=== PATIENT | female | born 1980 | race African-American/Black ===

== ENCOUNTER 2017-08-11 18:58 | Emergency (ER) | payer OTHER | END 2017-08-11 20:00 | disposition left against medical advice (07) | LOC: ERS 18:58 | DX: Z53.21 Procedure and treatment not carried out due to patient leaving prior to being seen by health care provider (principal) ==

== ENCOUNTER 2018-12-28 20:00 | Emergency (ER) | payer OTHER ==
[~2018-12-28 20:00] MED LIST: ISOVUE-370 76%-LOCM 1 ML ONE
[2018-12-28 20:51] LABS: #Basophils 0.1 thou/uL (0.0-0.2); #Eosinphils 0.4 thou/uL (0.0-0.7); #Lymphocytes 3.4 thou/uL (1.20-3.40); #Monocytes 0.8 thou/uL (0.11-0.59); #Neutrophils 5.2 thou/uL (1.40-6.50); %Basophils 0.6 % (0.0-1.0); %Eosinophils 3.8 % (0.0-10.0); %Lymphocytes 34.1 % (21.0-51.0); %Monocytes 8.5 % (0.0-10.0); %Neutrophils 53.1 % (42.0-75.0); Mean Corpuscular HGB CONC 37.4 g/dL (32.0-36.0); Mean Corpuscular Hemoglobin 31.2 pg (27.0-31.0); Mean Corpuscular Volume 83.4 fL (78.0-98.0); Mean Platelet Volume 7.7 fL (7.4-10.4); Platelet Count 264 thou/uL (130-400); RBC Distribution Width 15.8 % (11.5-14.5); White Blood Cell (WBC) Count 9.9 thou/uL (4.8-10.8)
[2018-12-28 20:57] LABS: Bacteria/HPF None Seen HPF (None Seen); Bilirubin Negative (Negative); Blood, Urine Negative (Negative); Clarity Clear (Clear); Glucose, Urine (Dipstick) Normal (Negative); Leukocyte 25 Leu/uL (Negative); Nitrite Negative (Negative); Pregnancy Test - Urine (BHCG) Negative (Negative); Pregu Control Background? CLEAR/WHITE (CLR/WHITE); Pregu Control Bar Appear? YES (CONTROL BAR); Protein, Urine (Dipstick) Negative (Neg-Trace); RBC/HPF 0-3 HPF (0-3); Specific Gravity 1.015 (1.002-1.036); Urobilinogen Normal mg/dL (Less than 2); WBC/HPF 0-3 HPF (0-3)
[2018-12-28 21:03] LABS: Stomatocytes SLIGHT = 2-5 cells (100X) (0-1/hpf)
[2018-12-28 21:09] LABS: ALT (SGPT) 14 U/L (8-55); AST (SGOT) 13 U/L (5-34); Albumin 3.9 g/dL (3.5-5.0); Alkaline Phosphatase 58 U/L (40-150); Anion Gap 11 mmol/L (10-20); BUN (Urea Nitrogen) 8 mg/dL (7.0-18.7); Bilirubin, Total 0.4 mg/dL (0.2-1.2); Calc. Creatinine Clearance 0 mL/min (70-130); Calcium 8.7 mg/dL (7.8-10.44); Carbon Dioxide 25 mmol/L (22-29); Chloride 106 mmol/L (98-107); Estimated GFR-MDRD Greater than 90; Globulin 2.8 g/dL (2.4-3.5); Glucose 96 mg/dL (70-105); Lipase 47 U/L (8-78); Potassium 3.6 mmol/L (3.5-5.1); Protein, Total 6.7 g/dL (6.0-8.3); Sodium 138 mmol/L (136-145)
[2018-12-28] MEDS ORDERED: Ketorolac Tromethamine 60 MG/2 ML VIAL ONE (21:42)
[2018-12-28] MEDS ORDERED: Sodium Chloride 0.9% 100 ML ONE (22:31)
[2018-12-28] MEDS ORDERED: cefTRIAXone\\ROCEPHIN 250 MG VIAL ONE (22:31)
[2018-12-28] MEDS ORDERED: Azithromycin 250 MG TAB ONE (22:31)
[2018-12-28] MEDS ORDERED: Ondansetron PF 4 MG/2 ML Vial ONE (22:31)
--- NOTE | 2018-12-28 23:39 | CT ---
CT ABDOMEN AND PELVIS WITH IV CONTRAST: History: Abdominal pain. FINDINGS: Changes of cholecystectomy. The lungs bases are clear. The liver, spleen, pancreas, adrenal glands, a nd kidneys are normal. No free air, free fluid or lymphadenopathy is seen in the abdomen or pelvis. U terus and ovaries are present. The small bowel loops are normally dilated. The small bowel loops are not abnormally dilated. A normal appendix is present. A small umbilical hernia is noted. Sclerosis of the ilium and sacrum bilaterally on either side of the SI joints are again seen as on 09-13-16. IMPRESSION: 1. No evidence of acute process. POS: [facility]
[2018-12-30 00:08] LABS: Chlamydia by PCR DETECTED (NotDetected); GC by PCR Not Detected (NotDetected)
== END 2018-12-29 00:02 | disposition home or self-care (01) ==
LOC: ERS 20:00
DX: N76.0 Acute vaginitis (principal); B96.89 Other specified bacterial agents as the cause of diseases classified elsewhere; R19.7 Diarrhea, unspecified; R11.0 Nausea
CPT/HCPCS: 36415; 74177; 80053; 81003; 81015; 81025; 83690; 85025; 87480; 87491; 87510; 87591; 87660; 96365; 96372; 96375; J0696; J1885; J2405; J3490; Q9966

== ENCOUNTER → 2019-01-07 | Day surgery (SDC) | payer OTHER ==
[~2019-01-07] MED LIST changes: +Azithromycin 250 MG TAB ONE; -ISOVUE-370 76%-LOCM 1 ML ONE
== END ==
LOC: ER/OP 21:16
DX: A64 Unspecified sexually transmitted disease (principal)
CPT/HCPCS: J3370

== ENCOUNTER 2019-02-06 23:50 | Emergency (ER) | payer OTHER ==
[2019-02-07 00:26] LABS: Bilirubin Negative (Negative); Blood, Urine Negative (Negative); Clarity Clear (Clear); Glucose, Urine (Dipstick) Normal (Negative); Leukocyte Negative Leu/uL (Negative); Nitrite Negative (Negative); Protein, Urine (Dipstick) Negative (Neg-Trace); Urobilinogen Normal mg/dL (Less than 2)
[2019-02-07 00:39] LABS: Pregnancy Test - Urine (BHCG) Negative (Negative); Pregu Control Background? CLEAR/WHITE (CLR/WHITE); Pregu Control Bar Appear? YES (CONTROL BAR); Specific Gravity 1.013 (1.002-1.036)
[2019-02-07] MEDS ORDERED: cefTRIAXone\\ROCEPHIN 250 MG VIAL ONE ×2 (01:40→01:42)
[2019-02-07] MEDS ORDERED: Lidocaine 1% w/Epinephrine 1:100K 20 ML VIAL ONE (01:40)
[2019-02-07] MEDS ORDERED: Lidocaine 1% (PF) 30 ML VIAL ONE (01:40)
[2019-02-07] MEDS ORDERED: Lidocaine 1% PF 5 ML VIAL ONE (01:42)
--- NOTE | 2019-02-07 10:53 | ULT ---
PRELIMINARY REPORT/[facility]/AFTER HOURS PROCEDURE: EXAMS: US Pelvis, Transvaginal US Duplex Arterial/Venous of the Pelvis, Complete CLINICAL HISTORY: Pain. TECHNIQUE: Real-time pelvic ultrasound (complete) with image documentation. Transvaginal imaging was used for be tter evaluation of the endometrium and adnexa. Real-time duplex ultrasound scan of the pelvis integra ting B-mode two-dimensional vascular structure, Doppler spectral analysis and color flow Doppler imag ing. COMPARISON: No relevant prior studies available. FINDINGS: Uterus/cervix: No acute findings. Normal endometrial stripe thickness at 9 mm. No myometrial mass. Right ovary: No acute findings. 4.4 x 2. 7 x 2. 7 cm. Normal blood flow on color and spectral Doppler imaging. No torsion. Left ovary: No acute findings. 5.0 x 2.7 x 4.0 cm. Normal blood flow on color and spectral Doppler imaging. No torsion. Free fluid: Small volume free cul de sac fluid. IMPRESSION: No torsion. Small volume fluid in the cul de sac, within physiologic normal limits for reproductive a ge female. Thank you for allowing us to participate in the care of your patient. Dictated and Authenticated by: Tami Guerrero MD 02/07/2019 1:48 AM Central Time ([place] & [place]) FINAL REPORT TRANSVAGINAL PELVIC ULTRASOUND WITH CASTILLO-SCALE AND COLOR-FLOW AND SPECTRAL DOPPLER IMAGING: I agree with the preliminary report given by Dr. Guerrero of [facility]. CODE QA POS: [facility]
[2019-02-11 00:51] LABS: Chlamydia by PCR Not Detected (NotDetected); GC by PCR Not Detected (NotDetected)
== END 2019-02-07 02:14 | disposition home or self-care (01) ==
LOC: ERS 23:50
DX: N89.8 Other specified noninflammatory disorders of vagina (principal); G43.909 Migraine, unspecified, not intractable, without status migrainosus
CPT/HCPCS: 76856; 81003; 81025; 87480; 87491; 87510; 87591; 87660; 96372; J0696; J2001

== ENCOUNTER 2019-06-06 14:44 | Emergency (ER) | payer OTHER ==
[2019-06-06] MEDS ORDERED: Ketorolac Tromethamine 30 MG/ML VIAL ONE (15:19)
[2019-06-06 15:55] LABS: Bilirubin Negative (Negative); Blood, Urine Negative (Negative); Clarity Clear (Clear); Glucose, Urine (Dipstick) Normal (Negative); Leukocyte Negative Leu/uL (Negative); Nitrite Negative (Negative); Protein, Urine (Dipstick) Negative (Neg-Trace); Urobilinogen Normal mg/dL (Less than 2)
[2019-06-06 15:56] LABS: #Basophils 0.1 thou/uL (0.0-0.2); #Eosinphils 0.3 thou/uL (0.0-0.7); #Lymphocytes 3.2 thou/uL (1.20-3.40); #Monocytes 0.9 thou/uL (0.11-0.59); #Neutrophils 4.6 thou/uL (1.40-6.50); %Basophils 1.3 % (0.0-1.0); %Eosinophils 3.8 % (0.0-10.0); %Lymphocytes 34.5 % (21.0-51.0); %Monocytes 9.9 % (0.0-10.0); %Neutrophils 50.6 % (42.0-75.0); Mean Corpuscular Volume 81.8 fL (78.0-98.0); Mean Platelet Volume 7.6 fL (7.4-10.4); Platelet Count 272 thou/uL (130-400); RBC Distribution Width 15.8 % (11.5-14.5); White Blood Cell (WBC) Count 9.1 thou/uL (4.8-10.8)
[2019-06-06 15:57] LABS: Pregnancy Test - Urine (BHCG) Negative (Negative); Pregu Control Background? CLEAR/WHITE (CLR/WHITE); Pregu Control Bar Appear? YES (CONTROL BAR); Specific Gravity 1.013 (1.002-1.036)
[2019-06-06 16:00] LABS: Mean Corpuscular HGB CONC 37.2 g/dL (32.0-36.0)
[2019-06-06 16:04] LABS: ALT (SGPT) 21 U/L (8-55); AST (SGOT) 23 U/L (5-34); Albumin 3.9 g/dL (3.5-5.0); Alkaline Phosphatase 67 U/L (40-110); Anion Gap 12 mmol/L (10-20); BUN (Urea Nitrogen) 7 mg/dL (7.0-18.7); Bilirubin, Total 0.4 mg/dL (0.2-1.2); Calc. Creatinine Clearance 0 mL/min (70-130); Calcium 9.2 mg/dL (7.8-10.44); Carbon Dioxide 27 mmol/L (22-29); Chloride 107 mmol/L (98-107); Estimated GFR-MDRD 88; Globulin 3.4 g/dL (2.4-3.5); Glucose 80 mg/dL (70-105); Potassium 4.4 mmol/L (3.5-5.1); Protein, Total 7.3 g/dL (6.0-8.3); Sodium 142 mmol/L (136-145)
[2019-06-07 22:08] LABS: Chlamydia by PCR Not Detected (NotDetected); GC by PCR Not Detected (NotDetected)
== END 2019-06-06 17:23 | disposition home or self-care (01) ==
LOC: ERS 14:44
DX: R10.9 Unspecified abdominal pain (principal); G43.909 Migraine, unspecified, not intractable, without status migrainosus; F41.9 Anxiety disorder, unspecified; F32.9 Major depressive disorder, single episode, unspecified; Z79.899 Other long term (current) drug therapy
CPT/HCPCS: 36415; 80053; 81003; 81025; 85025; 87491; 87591; 96372; 96374; J0500; J1885

== ENCOUNTER 2019-11-15 16:11 | Emergency (ER) | payer OTHER ==
[2019-11-15] MEDS ORDERED: Acetaminophen 500 MG TAB ONE (16:31)
[2019-11-16 15:26] LABS: SARS-CoV-2 MS2 Positive; SARS-CoV-2 N Gene Negative; SARS-CoV-2 S Gene Negative; SARS-CoV-2 orf1ab Negative
== END 2019-11-15 17:28 | disposition home or self-care (01) ==
LOC: ERS 16:11
DX: J02.9 Acute pharyngitis, unspecified (principal); Z20.828 Contact with and (suspected) exposure to other viral communicable diseases; R51 Headache; R50.9 Fever, unspecified; G89.29 Other chronic pain; F41.9 Anxiety disorder, unspecified; F31.9 Bipolar disorder, unspecified
CPT/HCPCS: 87081; 87430; 87635; 99284; U0003

== ENCOUNTER 2021-03-25 16:12 | Emergency (ER) | payer OTHER ==
[~2021-03-25 16:12] MED LIST changes: -Azithromycin 250 MG TAB ONE; +Iopamidol-370 76% 500 ML 1 ML ONE
[2021-03-25] MEDS ORDERED: Morphine 4 MG/ML VIAL ONE (16:52)
[2021-03-25] MEDS ORDERED: Ketorolac Tromethamine 30 MG/ML VIAL ONE (16:53)
[2021-03-25] MEDS ORDERED: Ondansetron PF 4 MG/2 ML Vial ONE (16:53)
[2021-03-25 16:59] LABS: BHCG - Serum Negative (NEGATIVE); Pregs Control Background? CLEAR/WHITE (CLR/WHITE); Pregs Control Bar Appear? YES (CONTROL BAR)
[2021-03-25 17:00] LABS: Bacteria/HPF None Seen HPF (None Seen); Bilirubin Negative (Negative); Blood, Urine 3+ (Negative); Clarity Clear (Clear); Glucose, Urine (Dipstick) Normal (Negative); Ketone, Urine Negative (Negative); Leukocyte 75 Leu/uL (Negative); Nitrite Negative (Negative); Protein, Urine (Dipstick) 10 mg/dL (Neg-Trace); Specific Gravity, Urine 1.015 (1.002-1.036)
[2021-03-25 17:02] LABS: #Eosinphils 0.4 thou/uL (0.0-0.7); #Lymphocytes 3.9 thou/uL (1.20-3.40); #Monocytes 0.7 thou/uL (0.11-0.59); #Neutrophils 4.6 thou/uL (1.40-6.50); %Lymphocytes 41.3 % (21.0-51.0); %Monocytes 6.8 % (0.0-10.0); %Neutrophils 47.9 % (42.0-75.0); Hemoglobin 12.8 g/dL (12.0-16.0); Mean Corpuscular HGB CONC 37.4 g/dL (32.0-36.0); Mean Corpuscular Hemoglobin 30.4 pg (27.0-31.0); Mean Corpuscular Volume 81.4 fL (78.0-98.0); Mean Platelet Volume 7.1 fL (7.4-10.4); Platelet Count 347 thou/uL (130-400); RBC Distribution Width 16.5 % (11.5-14.5); White Blood Cell (WBC) Count 9.5 thou/uL (4.8-10.8)
[2021-03-25 17:04] LABS: ALT (SGPT) 32 U/L (8-55); AST (SGOT) 33 U/L (5-34); Alkaline Phosphatase 90 U/L (40-110); Anion Gap 11 mmol/L (10-20); BUN (Urea Nitrogen) 6 mg/dL (7.0-18.7); Bilirubin, Total 0.4 mg/dL (0.2-1.2); Calc. Creatinine Clearance 0 mL/min (70-130); Calcium 9.5 mg/dL (7.8-10.44); Carbon Dioxide 27 mmol/L (22-29); Chloride 106 mmol/L (98-107); Globulin 3.6 g/dL (2.4-3.5); Glucose 98 mg/dL (70-105); Lipase 43 U/L (8-78); Potassium 4.1 mmol/L (3.5-5.1); Protein, Total 7.6 g/dL (6.0-8.3); Sodium 140 mmol/L (136-145)
== END 2021-03-25 18:45 ==
LOC: ERS 16:12
DX: R11.2 Nausea with vomiting, unspecified (principal); R19.7 Diarrhea, unspecified; R10.13 Epigastric pain; M54.50 Low back pain, unspecified; R51.9 Headache, unspecified; E28.2 Polycystic ovarian syndrome
CPT/HCPCS: 74177; 80053; 81003; 81015; 83690; 84703; 85025; 96374; 96375; J1885; J2270; J2405; Q9967

== ENCOUNTER 2021-04-28 09:51 | Emergency (ER) | payer OTHER, SELFPAY ==
[2021-04-28 10:43] LABS: BHCG - Serum Negative (NEGATIVE); Pregs Control Background? CLEAR/WHITE (CLR/WHITE); Pregs Control Bar Appear? YES (CONTROL BAR)
[2021-04-28 10:49] LABS: ALT (SGPT) 26 U/L (8-55); AST (SGOT) 21 U/L (5-34); Albumin 3.8 g/dL (3.5-5.0); Alkaline Phosphatase 71 U/L (40-110); Anion Gap 10 mmol/L (10-20); BUN (Urea Nitrogen) 6 mg/dL (7.0-18.7); Bilirubin, Total 0.5 mg/dL (0.2-1.2); Calc. Creatinine Clearance 0 mL/min (70-130); Calcium 9.5 mg/dL (7.8-10.44); Carbon Dioxide 26 mmol/L (22-29); Chloride 105 mmol/L (98-107); Globulin 3.7 g/dL (2.4-3.5); Glucose 100 mg/dL (70-105); Lipase 26 U/L (8-78); Potassium 4.1 mmol/L (3.5-5.1); Protein, Total 7.5 g/dL (6.0-8.3); Sodium 137 mmol/L (136-145)
[2021-04-28 11:32] LABS: Band 3 % (5-11); Eosinophils 2 % (0-10); Hemoglobin 12.7 g/dL (12.0-16.0); Lymphocytes 33 % (21-51); MDiff Complete? YES; Mean Corpuscular Hemoglobin 30.1 pg (27.0-31.0); Mean Corpuscular Volume 81.4 fL (78.0-98.0); Mean Platelet Volume 8.1 fL (7.4-10.4); Monocytes 3 % (0-10); Neutrophil 59 % (42-75); Platelet Count 254 thou/uL (130-400); RBC Distribution Width 16.4 % (11.5-14.5); Red Blood Cell (RBC) Count 4.21 mill/uL (4.20-5.40); White Blood Cell (WBC) Count 7.6 thou/uL (4.8-10.8)
[2021-04-28 14:48] LABS: Bilirubin Negative (Negative); Blood, Urine Negative (Negative); Clarity Clear (Clear); Glucose, Urine (Dipstick) Normal (Negative); Ketone, Urine Negative (Negative); Leukocyte Negative Leu/uL (Negative); Nitrite Negative (Negative); Protein, Urine (Dipstick) Negative (Neg-Trace); Urobilinogen Normal mg/dL (Less than 2)
[2021-04-28] MEDS ORDERED: Lidocaine 1% PF 5 ML VIAL ONE (14:57)
[2021-04-28] MEDS ORDERED: Ketorolac Tromethamine 30 MG/ML VIAL ONE (14:57)
[2021-04-28] MEDS ORDERED: cefTRIAXone\\ROCEPHIN 500 MG VIAL ONE (14:57)
[2021-04-30 20:00] LABS: Chlamydia by PCR Not Detected (NotDetected); GC by PCR Not Detected (NotDetected)
== END 2021-04-28 15:28 | disposition home or self-care (01) ==
LOC: ERS 09:51
DX: N89.8 Other specified noninflammatory disorders of vagina (principal); R10.2 Pelvic and perineal pain; G43.909 Migraine, unspecified, not intractable, without status migrainosus
CPT/HCPCS: 36415; 76856; 80053; 81003; 83690; 84703; 85025; 87480; 87491; 87510; 87591; 87660; 96372; J0696; J1885

== ENCOUNTER 2021-09-28 12:25 | Emergency (ER) | payer OTHER, SELFPAY ==
[2021-09-28 15:04] LABS: Bilirubin Negative (Negative); Blood, Urine Negative (Negative); Clarity Clear (Clear); Glucose, Urine (Dipstick) Normal (Negative); Ketone, Urine Negative (Negative); Leukocyte Negative Leu/uL (Negative); Nitrite Negative (Negative); Protein, Urine (Dipstick) Negative (Neg-Trace); Specific Gravity, Urine 1.014 (1.002-1.036); Urobilinogen Normal mg/dL (Less than 2)
[2021-09-28 15:08] LABS: Pregnancy Test - Urine (BHCG) Negative (Negative); Pregu Control Background? CLEAR/WHITE (CLR/WHITE); Pregu Control Bar Appear? YES (CONTROL BAR); Specific Gravity 1.014 (1.002-1.036)
[2021-09-29 12:11] LABS: Chlamydia by PCR Not Detected (NotDetected); GC by PCR Not Detected (NotDetected)
== END 2021-09-28 16:10 | disposition home or self-care (01) ==
LOC: ERS 12:25
DX: N76.0 Acute vaginitis (principal)
CPT/HCPCS: 81003; 81025; 87480; 87491; 87510; 87591; 87660; 99284

== ENCOUNTER 2021-12-24 19:16 | Emergency (ER) | payer BC, SELFPAY ==
[2021-12-24 20:04] LABS: #Basophils 0.1 thou/uL (0.0-0.2); #Eosinphils 0.5 thou/uL (0.0-0.7); #Lymphocytes 2.8 thou/uL (1.20-3.40); #Monocytes 0.7 thou/uL (0.11-0.59); #Neutrophils 4.6 thou/uL (1.40-6.50); %Basophils 0.8 % (0.0-1.0); %Eosinophils 5.6 % (0.0-10.0); %Monocytes 8.2 % (0.0-10.0); %Neutrophils 53.5 % (42.0-75.0); Hemoglobin 12.2 g/dL (12.0-16.0); Mean Corpuscular HGB CONC 37.2 g/dL (32.0-36.0); Mean Corpuscular Hemoglobin 30.5 pg (27.0-31.0); Mean Platelet Volume 7.7 fL (7.4-10.4); Platelet Count 308 thou/uL (130-400); RBC Distribution Width 16.5 % (11.5-14.5); Red Blood Cell (RBC) Count 4.01 mill/uL (4.20-5.40); White Blood Cell (WBC) Count 8.7 thou/uL (4.8-10.8)
[2021-12-24 20:15] LABS: ALT (SGPT) 16 U/L (8-55); AST (SGOT) 16 U/L (5-34); Albumin 3.9 g/dL (3.5-5.0); Alkaline Phosphatase 72 U/L (40-110); Anion Gap 14 mmol/L (10-20); BUN (Urea Nitrogen) 10 mg/dL (7.0-18.7); Bilirubin, Total 0.5 mg/dL (0.2-1.2); Calc. Creatinine Clearance 0 mL/min (70-130); Calcium 9.2 mg/dL (7.8-10.44); Carbon Dioxide 25 mmol/L (22-29); Chloride 107 mmol/L (98-107); Estimated GFR 83; Globulin 3.3 g/dL (2.4-3.5); Glucose 101 mg/dL (70-105); Potassium 4.2 mmol/L (3.5-5.1); Protein, Total 7.2 g/dL (6.0-8.3); Sodium 142 mmol/L (136-145)
[2021-12-24 21:55] LABS: Bilirubin Negative (Negative); Blood, Urine Negative (Negative); Clarity Clear (Clear); Glucose, Urine (Dipstick) Normal (Negative); Ketone, Urine Negative (Negative); Leukocyte Negative Leu/uL (Negative); Nitrite Negative (Negative); Protein, Urine (Dipstick) Negative (Neg-Trace); Specific Gravity, Urine 1.014 (1.002-1.036); pH, Urine 6.5 (5.0-9.0)
[2021-12-24 21:58] LABS: Pregnancy Test - Urine (BHCG) Negative (Negative); Pregu Control Background? CLEAR/WHITE (CLR/WHITE); Pregu Control Bar Appear? YES (CONTROL BAR); Specific Gravity 1.014 (1.002-1.036)
[2021-12-24] MEDS ORDERED: Ketorolac Tromethamine 30 MG/ML VIAL ONE (22:20)
[2021-12-24] MEDS ORDERED: Ondansetron PF 4 MG/2 ML Vial ONE (23:45)
[2021-12-24] MEDS ORDERED: Morphine 4 MG/ML VIAL ONE (23:45)
[2021-12-25] MEDS ORDERED: Ketorolac Tromethamine 30 MG/ML VIAL ONE (00:16)
[2021-12-25 16:38] LABS: Chlamydia by PCR Not Detected (NotDetected); GC by PCR Not Detected (NotDetected)
== END 2021-12-25 02:10 | disposition home or self-care (01) ==
LOC: ERS 19:16
DX: R10.32 Left lower quadrant pain (principal)
CPT/HCPCS: 36415; 74177; 76856; 80053; 81003; 81025; 85025; 87480; 87491; 87510; 87591; 87660; 96374; 96375; J1885; J2270; J2405; Q9967

== ENCOUNTER 2025-02-24 14:42 | Outpatient (CLI) | payer BC | END 2025-02-24 14:43 | disposition home or self-care (01) | LOC: SCSMRI 14:42 | PROVIDERS: ATTEND Podiatrist | DX: M76.821 Posterior tibial tendinitis, right leg (principal); M79.671 Pain in right foot; M21.41 Flat foot [pes planus] (acquired), right foot; S93.421A Sprain of deltoid ligament of right ankle, initial encounter ==